=== PATIENT | male | born 1985 | race African-American/Black ===

== ENCOUNTER 2016-09-06 07:34 | Emergency (ER) | payer BC ==
[2016-09-06] MEDS ORDERED: LIDOCAINE 1% INJ-PF (10 MG/ML) 30 ML SDV INJ ONE (08:02)
[2016-09-06] MEDS ORDERED: DIPH/PERTUSS(ACELL)/TETANUS VAC/PF 0.5 ML SYR (>=10YO) IM ONE (08:05)
--- NOTE | 2016-09-06 08:29 | ER Document Report ---
ED General - General Chief Complaint: Laceration Stated Complaint: RIGHT FOOT TOE INJURY Time Seen by Provider: 09/06/16 07:42 Notes: Patient is a 31-year-old male who comes to the ED complaining of a toe laceration that happened this morning. Patient states he was going upstairs when he stumbled and hyperextended his toe. Patient states that he has not had any pain but he did notice some blood on his hand so he did wash out the wound which is when he noticed the laceration to his second right toe on the plantar surface. Patient states he still has mobility of his toe. Patient states that he did not fall and did not injure any other part of his body including his head. Denies any fever, chest pain, shortness of breath, syncope, abdominal pain, nausea, vomiting, dysuria, muscle weakness, joint pain, rash. Denies any significant past medical history including but not limited to diabetes. He does not take any p.o. medications daily. No known drug allergies. Patient states that he has not had tetanus update since she was a child. TRAVEL OUTSIDE OF THE [place] IN LAST 30 DAYS: No - Related Data Allergies/Adverse Reactions: No Known Allergies Allergy (Verified 09/06/16 07:36) Past Medical History - Social History Smoking Status: Current Every Day Smoker Family History: Reviewed & Not Pertinent Patient has suicidal ideation: No Patient has homicidal ideation: No - Past Medical History Cardiac Medical History: Denies: Hx Atrial Fibrillation, Hx Congestive Heart Failure, Hx Heart Attack , Hx Hypercholesterolemia, Hx Hypertension Pulmonary Medical History: Denies: Hx Asthma, Hx Bronchitis, Hx COPD, Hx Pneumonia, Hx Tuberculosis Neurological Medical History: Denies: Hx Migraine, Hx Seizures Endocrine Medical History: Denies: Hx Diabetes Mellitus Type 1, Hx Diabetes Mellitus Type 2 Renal/ Medical History: Denies: Hx End Stage Renal Disease, Hx Kidney Stones, Hx Peritoneal Dialysis GI Medical History: Denies: Hx Gastroesophageal Reflux Disease, Hx Hiatal Hernia , Hx Ulcer Musculoskeltal Medical History: Denies Hx Arthritis Psychiatric Medical History: Denies: Hx Attention Deficit Hyperactivity Disorder, Hx Bipolar Disorder, Hx Depression, Hx Schizophrenia Past Surgical History: Denies: Hx Abdominal Surgery, Hx Appendectomy, Hx Bowel Surgery, Hx Cardiac Catheterization, Hx Cardiac Surgery, Hx Cholecystectomy, Hx Genitourinary Surgery, Hx Kidney (Renal Surgery), Hx Neurologic Surgery, Hx Nose Surgery, Hx Open Heart Surgery, Hx Oral Surgery, Hx Orthopedic Surgery, Hx Pancreatic Surgery, Hx Pituitary Surgery, Hx Rectal Surgery, Hx Testicular Surgery, Hx Thyroid Surgery, Hx Tonsillectomy, Hx Urinary Tract Surgery, Hx Vascular Surgery - Immunizations Immunizations up to date: Yes Hx Diphtheria, Pertussis, Tetanus Vaccination: Yes Review of Systems - Review of Systems Notes: REVIEW OF SYSTEMS: CONSTITUTIONAL : Denies fever, chills, or sweats. Denies recent illness. CARDIOVASCULAR: Denies chest pain. Denies palpitations or racing or irregular heart beat. Denies ankle edema. RESPIRATORY: Denies cough, cold, or chest congestion. Denies shortness of breath, difficulty breathing, or wheezing. GASTROINTESTINAL: Denies abdominal pain or distention. Denies nausea, vomiting , or diarrhea. Denies blood in vomitus, stools, or per rectum. Denies black, tarry stools. Denies constipation. GENITOURINARY: Denies difficulty urinating, painful urination, burning, frequency, blood in urine, or discharge. MUSCULOSKELETAL: see hpi SKIN: see hpi NEUROLOGICAL: Denies confusion or altered mental status. Denies passing out or loss of consciousness. Denies dizziness or lightheadedness. Denies headache. Denies weakness or paralysis or loss of use of either side. Denies problems with gait or speech. Denies sensory loss, numbness, or tingling. Denies seizures. ALL OTHER SYSTEMS REVIEWED AND NEGATIVE. Dictation was performed using [employer] voice recognition software Physical Exam - Vital signs Vitals: Temp Pulse Resp BP Pulse Ox 98.4 F 83 16 137/83 H 100 09/06/16 07:36 09/06/16 07:36 09/06/16 07:36 09/06/16 07:36 09/06/16 07:36 Notes: PHYSICAL EXAMINATION: GENERAL: Well-appearing, well-nourished and in no acute distress. HEAD: Atraumatic, normocephalic. LUNGS: Breath sounds clear to auscultation bilaterally and equal. No wheezes rales or rhonchi. HEART: Regular rate and rhythm without murmurs, rubs, gallops. Musculoskeletal: FROM to passive/active of the leg/foot/toes of the left side. Strength 5+/5. No tendon compromise. + tenderness at site of laceration. No bony tenderness or deformity noted. No abscess, streaks, erythema, or pustular d /c. Neurovascularly intact distal. Extremities: No cyanosis, clubbing, or edema b/l. Peripheral pulses 2+. Capillary refill less than 3 seconds. NEUROLOGICAL: normal gait. Normal sensory, motor exams PSYCH: Normal mood, normal affect. SKIN: approx 2cm horizontal laceration noted to the plantar left 2nd toe at the DIP area. superficial. Course - Re-evaluation Re-evalutation: 09/06/16 08:34 Patient is a 31-year-old afebrile and well-hydrated male who presents with a laceration. Vitals stable. PE otherwise unremarkable aside from the laceration. Laceration repair completed using 6 simple interrupted sutures without any complications. Wound dressing placed. Tdap given today. We will send him home with prophylactic Keflex 500mg PO BID x5 days. Wound instructions reviewed with the patient as noted in the d/c. Pt to establish care with a PCM this week and have a wound check. May have sutures removed in 10-14 days with the ED/PCM at that time. Return to the ED with worsening symptoms. Pt in agreement. - Vital Signs Vital signs: Temp Pulse Resp BP Pulse Ox 98.6 F 65 16 128/91 H 96 09/06/16 09:23 09/06/16 09:23 09/06/16 09:23 09/06/16 09:23 09/06/16 09:23 Procedures - Laceration/Wound Repair Left Toe Time completed: 08:45 Wound length (cm): 2.0 Wound's Depth, Shape: Superficial, Linear Laceration pre-procedure: Sterile PPE donned, Sterile drapes applied, Shur- Clens applied, Other - saline Anesthetic type: 1% Lidocaine Volume Anesthetic (mLs): 4 Wound explored: Clean, No foreign body removed Irrigated w/ Saline (mLs): 50 Wound Debrided: Minimal Wound Repaired With: Sutures Suture Size/Type: 5:0, Nylon Number of Sutures: 6 - simple interrupted Layer Closure?: No Post-procedure wound care: Sterile dressing applied Post-procedure NV exam normal: Yes Complications: No Discharge - Discharge Clinical Impression: Toe laceration Qualifiers: Encounter type: initial encounter Toe: unspecified toe Damage to nail status: without damage Foreign body presence: without foreign body Laterality: left Qualified Code(s): S91.119A - Laceration without foreign body of unspecified toe without damage to nail, initial encounter Condition: Stable Disposition: HOME, SELF-CARE Instructions: Antibiotic Ointment Protection ([facility]), Soap Cleansing ([facility]), Tetanus Immunization Given ([facility]), Prophylactic Antibiotic ([facility]), Laceration Care ([facility]) Additional Instructions: Do not shower or bathe for 24 hours. After 24 hours you may shower but no submersion of the wound under water. Keep the original dressing on the wound for 24 hours unless the drainage soaks through. Change the dressing daily thereafter and keep the knots of the suture material clean from any dried discharge. You may leave the wound open to the air once there is no more discharge. Return to the ED and/or your PCM in 2-3 days for a recheck. Monitor for any signs of worsening pain or redness, purulent drainage, streaks, and/or fever. Return to the ED if noticing any of the above symptoms or as needed. Take medications as directed. Your sutures will need to be removed in 10-14 days. Establish with a PCM this week. Prescriptions: Cephalexin Monohydrate [Keflex 500 mg Capsule] 500 mg PO BID #10 capsule Forms: Elevated Blood Pressure, Smoking Cessation Education, Return to Work Referrals: [facility],NO [Primary Care Provider] - Follow up as needed
[2016-09-06 09:25] VITALS: BP 128/91
== END 2016-09-06 09:28 | disposition home or self-care (01) ==
LOC: ER 07:34
PROC: 0HQNXZZ Repair Left Foot Skin, External Approach (ICD-10-PCS; principal; 2016-09-06)
DX: S91.115A Laceration without foreign body of left lesser toe(s) without damage to nail, initial encounter (principal); W45.8XXA Other foreign body or object entering through skin, initial encounter; F17.200 Nicotine dependence, unspecified, uncomplicated; Z23 Encounter for immunization
CPT/HCPCS: 99282; 90471; 90715; 12001; J3490